=== PATIENT | female | born 1985 | race Hispanic/Latino ===

== ENCOUNTER 2024-04-25 09:59 | Emergency (ER) | payer OTHER ==
[~2024-04-25] VITALS: Ht 162.6 cm; Wt 68.0 kg
[~2024-04-25 09:59] MED LIST: IBUP-2070 PO; PREN1TAB26 PO
[2024-04-25 10:01] VITALS: BP 138/79; PULSE 75; RESP 16; TEMP 97.9
[2024-04-25 10:22] LABS: BASOPHILS # (AUTO) 0.03 K/uL (0.00-0.20); BASOPHILS % (AUTO) 0.5 % (0.0-5.0); EOSINOPHILS # (AUTO) 0.12 K/uL (0.00-0.70); HEMATOCRIT 39.2 % (36-48); IMMATURE GRANULOCYTE ABSOLUTE 0.02 K/uL (0-1); LYMPHOCYTES # (AUTO) 1.5 K/uL (1.0-4.8); LYMPHOCYTES % (AUTO) 24.8 % (21.0-51.0); MEAN CORPUSCULAR HEMOGLOBIN 29.3 pg (27.0-33.0); MEAN CORPUSCULAR HGB CONC 34.4 g/dL (32.0-36.0); MEAN CORPUSCULAR VOLUME 85.2 fL (79-99); MONOCYTES # (AUTO) 0.3 K/uL (0.1-1.0); MONOCYTES % (AUTO) 5.3 % (3.0-13.0); NEUTROPHILS # (AUTO) 4.1 K/uL (1.8-7.7); NEUTROPHILS % (AUTO) 67.1 % (40.0-77.0); PLATELET COUNT (AUTO) 275 K/uL (130-400); RED CELL DISTRIBUTION WIDTH 16.2 % (11.0-15.5); WHITE BLOOD COUNT (AUTO) 6.1 K/uL (4.8-10.8)
[2024-04-25 10:31] LABS: CREATININE 0.6 mg/dL (0.5-1.0); POTASSIUM 3.9 mmol/L (3.5-5.1)
[2024-04-25] MEDS: CLINDAMYCIN 150 MG CAP PO ONE (10:35)
[2024-04-25] MEDS: acetaMINOPHEN 500 MG TABLET PO ONE (10:36)
[2024-04-25] MEDS ORDERED: LIDOCAINE HCL 1% 20 ML VIAL INJ ONE (11:30)
[2024-04-25] MEDS ORDERED: CLIN-141 PO (11:36)
[2024-04-25] MEDS ORDERED: IBUP-2077 PO (11:36)
== END 2024-04-25 11:42 | disposition home or self-care (01) ==
LOC: EDH 09:59
DX: L05.91 Pilonidal cyst without abscess (principal); Z79.899 Other long term (current) drug therapy; Z98.890 Other specified postprocedural states
CPT/HCPCS: 10060; 36415; 76705; 80048; 85025; 87070